=== PATIENT | male | born 1935 | race Caucasian/White ===

== ENCOUNTER 2024-06-11 15:29 | Observation (INO) | payer OTHER ==
[2024-06-11 17:53] LABS: BASO % 0.3 % (0-2.0); EOS % 4.2 % (0-4.5); HEMATOCRIT 36.1 % (35.4-49); HEMOGLOBIN 12.2 GM/dL (11.7-16.9); LYMPH % 36.8 % (8-40); MCH 32.1 pg (25.7-33.7); MCHC 33.7 g/dl (32.0-35.9); MEAN CELL VOLUME 95.4 fl (80-96); MEAN PLT VOLUME 8.8 fl (7.5-11.1); MONO % 16.7 % (3.8-10.2); PLATELET COUNT 147 10^3/uL (134-434); RBC 3.79 M/mm3 (4.00-5.60); RDW 13.8 % (11.9-15.9); WHITE BLOOD COUNT 4.4 K/mm3 (4.0-10.0)
[2024-06-11 18:16] LABS: POTASSIUM 4.3 mmol/L (3.5-5.1)
[2024-06-11 18:19] LABS: ALBUMIN 4.1 g/dl (3.4-5.0); CALCIUM 9.4 mg/dL (8.5-10.1)
[2024-06-11 18:23] LABS: CREATININE 1.7 mg/dL (0.55-1.3)
[2024-06-11 18:24] LABS: BILIRUBIN,TOTAL 0.8 mg/dL (0.2-1); TOT PROT 7.2 g/dl (6.4-8.2)
[2024-06-11 19:08] LABS: EPI CELLS 10 /uL (0-25.1); HYALINE CASTS 4 /uL (0-3.1); PH,URINE 5.5 (5.0-8.0); URINE APPEARANCE CLEAR; URINE BACTERIA 2 /uL (0-1359); URINE BILIRUBIN NEGATIVE (NEGATIVE); URINE COLOR YELLOW; URINE GLUCOSE (UA) NEGATIVE (NEGATIVE); URINE KETONE TRACE (NEGATIVE); URINE LEUK ESTERASE NEGATIVE (NEGATIVE); URINE NITRITE NEGATIVE (NEGATIVE); URINE PROTEIN 1+ (NEGATIVE); URINE RBC 30 /uL (0-23.9); URINE WBC 11 /uL (0-25.8)
[2024-06-11] MEDS: CARVEDILOL 3.125 MG TABLET (FP) PO SCH (23:57)
[2024-06-11] MEDS: DONEPEZIL HCL 10 MG TABLET (FP) PO SCH (23:57)
[2024-06-11] MEDS: ATORVASTATIN CA 40 MG TABLET (FP) PO SCH (23:57)
[2024-06-11] MEDS ORDERED: ATORVASTATIN CA 40 MG TABLET (FP) ONE (23:59)
[2024-06-11] MEDS ORDERED: DONEPEZIL HCL 5 MG TABLET (FP) ONE (23:59)
[2024-06-11] MEDS ORDERED: CARVEDILOL 3.125 MG TABLET (FP) ONE (23:59)
[2024-06-12] MEDS: DEXTROSE 5%-0.45% SALINE 1,000 ML IV SCH (00:25)
[2024-06-12] MEDS: REMDESIVIR 200 MG in SODIUM CHLORIDE 250 ML IVPB ONE (00:25)
[2024-06-12 08:59] LABS: HEMATOCRIT 34.5 % (35.4-49); HEMOGLOBIN 11.6 GM/dL (11.7-16.9); MCH 32.1 pg (25.7-33.7); MCHC 33.7 g/dl (32.0-35.9); MEAN CELL VOLUME 95.1 fl (80-96); MEAN PLT VOLUME 8.7 fl (7.5-11.1); PLATELET COUNT 132 10^3/uL (134-434); RBC 3.62 M/mm3 (4.00-5.60); WHITE BLOOD COUNT 3.9 K/mm3 (4.0-10.0)
[2024-06-12 09:11] LABS: POTASSIUM 3.8 mmol/L (3.5-5.1)
[2024-06-12 09:20] LABS: ALBUMIN 3.6 g/dl (3.4-5.0); BLOOD UREA NITROGEN 23.8 mg/dL (7-18); MAGNESIUM 2.1 mg/dL (1.8-2.4)
[2024-06-12 09:23] LABS: CREATININE 1.2 mg/dL (0.55-1.3); PHOSPHOROUS 2.6 mg/dL (2.5-4.9)
[2024-06-12 09:24] LABS: BILIRUBIN,TOTAL 0.6 mg/dL (0.2-1)
[2024-06-12 09:25] LABS: TOT PROT 6.4 g/dl (6.4-8.2)
[2024-06-12] MEDS ORDERED: ENOXAPARIN NA (PORCINE) 30 MG/0.3 ML DISP.SYRIN SQ ONE (10:53)
[2024-06-12] MEDS: ENOXAPARIN NA (PORCINE) 30 MG/0.3 ML DISP.SYRIN SQ SCH (10:59)
[2024-06-12] MEDS: VITAMIN B COMPLEX W/C COMBO TABLET (FP) PO SCH (10:59)
[2024-06-12] MEDS: ASPIRIN COATED 81 MG TABLET.EC PO SCH (10:59)
[2024-06-12] MEDS: CLOPIDOGREL BISULFATE 75 MG TABLET (FP) PO SCH (10:59)
[2024-06-12] MEDS: SOLIFENACIN SUCCINATE 5 MG TAB PO SCH (10:59)
[2024-06-12] MEDS ORDERED: ATORVASTATIN CA 40 MG TABLET (FP) ONE (20:54)
[2024-06-12] MEDS ORDERED: DONEPEZIL HCL 5 MG TABLET (FP) ONE (20:54)
[2024-06-12] MEDS ORDERED: CARVEDILOL 3.125 MG TABLET (FP) ONE (20:54)
[2024-06-12] MEDS: REMDESIVIR 100 MG in SODIUM CHLORIDE 250 ML IVPB SCH (21:15)
[2024-06-12] MEDS ORDERED: REMDESIVIR 100 MG in SODIUM CHLORIDE 250 ML IVPB SCH (22:00)
[2024-06-13 01:29] VITALS: BMI 22.1
[2024-06-13 07:57] LABS: HEMATOCRIT 37.6 % (35.4-49); HEMOGLOBIN 12.6 GM/dL (11.7-16.9); MCH 32.3 pg (25.7-33.7); MCHC 33.4 g/dl (32.0-35.9); MEAN CELL VOLUME 96.5 fl (80-96); MEAN PLT VOLUME 8.6 fl (7.5-11.1); PLATELET COUNT 146 10^3/uL (134-434); WHITE BLOOD COUNT 5.9 K/mm3 (4.0-10.0)
[2024-06-13 08:56] LABS: POTASSIUM 3.7 mmol/L (3.5-5.1)
[2024-06-13 09:01] LABS: CALCIUM 8.8 mg/dL (8.5-10.1)
[2024-06-13 09:02] LABS: BLOOD UREA NITROGEN 20.4 mg/dL (7-18); MAGNESIUM 2.1 mg/dL (1.8-2.4)
[2024-06-13 09:05] LABS: CREATININE 1.1 mg/dL (0.55-1.3)
[2024-06-14 08:01] LABS: BASO % 0.2 % (0-2.0); EOS % 2.3 % (0-4.5); HEMATOCRIT 34.8 % (35.4-49); HEMOGLOBIN 11.6 GM/dL (11.7-16.9); LYMPH % 38.2 % (8-40); MCH 32.1 pg (25.7-33.7); MCHC 33.4 g/dl (32.0-35.9); MEAN CELL VOLUME 95.9 fl (80-96); MEAN PLT VOLUME 8.9 fl (7.5-11.1); MONO % 11.4 % (3.8-10.2); NEUT % 47.9 % (42.8-82.8); PLATELET COUNT 148 10^3/uL (134-434); RBC 3.63 M/mm3 (4.00-5.60); RDW 13.8 % (11.9-15.9); WHITE BLOOD COUNT 5.2 K/mm3 (4.0-10.0)
[2024-06-14 08:33] LABS: BLOOD UREA NITROGEN 21.5 mg/dL (7-18); CALCIUM 8.4 mg/dL (8.5-10.1)
[2024-06-14 08:36] LABS: CREATININE 1.1 mg/dL (0.55-1.3)
[2024-06-14] MEDS: REMDESIVIR 100 MG in SODIUM CHLORIDE 250 ML IVPB ONE (22:21)
[2024-06-15] MEDS: QUEtiapine FUMARATE 25 MG TABLET PO PRN (08:13)
[2024-06-15] MEDS ORDERED: QUEtiapine FUMARATE 25 MG TABLET PO PRN (09:44)
[2024-06-15] MEDS: QUEtiapine FUMARATE 25 MG TABLET PO SCH (11:14)
[2024-06-15] MEDS ORDERED: QUEtiapine FUMARATE 25 MG TABLET PO SCH (14:00)
[2024-06-19 10:02] LABS: BASO % 0.3 % (0-2.0); EOS % 2.4 % (0-4.5); HEMATOCRIT 42.1 % (35.4-49); HEMOGLOBIN 13.7 GM/dL (11.7-16.9); LYMPH % 28.4 % (8-40); MCH 31.6 pg (25.7-33.7); MCHC 32.6 g/dl (32.0-35.9); MEAN PLT VOLUME 8.4 fl (7.5-11.1); MONO % 10.7 % (3.8-10.2); NEUT % 58.2 % (42.8-82.8); PLATELET COUNT 222 10^3/uL (134-434); RBC 4.34 M/mm3 (4.00-5.60); RDW 13.7 % (11.9-15.9); WHITE BLOOD COUNT 6.2 K/mm3 (4.0-10.0)
[2024-06-19 10:07] LABS: POTASSIUM 4.5 mmol/L (3.5-5.1)
[2024-06-19 10:10] LABS: BLOOD UREA NITROGEN 33.9 mg/dL (7-18)
[2024-06-19 10:13] LABS: CREATININE 1.3 mg/dL (0.55-1.3)
[2024-06-19 19:14] VITALS: RESP 18
[2024-06-19 23:01] VITALS: BP 102/58; PULSE 88; TEMP 98.1
== END 2024-06-20 00:21 ==
LOC: JER 15:29 → UNDOADMIN 20:39 → JERBED 20:39 → INTOOBSV 06-12 10:03 → JERBED 06-12 10:03 → J7W 06-13 00:43
PROVIDERS: ADMIT Internal Medicine; ATTEND Nurse Practitioner
PROC: 3E033GC Introduction of Other Therapeutic Substance into Peripheral Vein, Percutaneous Approach (ICD-10-PCS; principal; 2024-06-12)
PROC: 3E023GC Introduction of Other Therapeutic Substance into Muscle, Percutaneous Approach (ICD-10-PCS; 2024-06-12)
DX: G93.41 Metabolic encephalopathy (principal); U07.1 COVID-19; N17.9 Acute kidney failure, unspecified; R13.10 Dysphagia, unspecified; E86.0 Dehydration; I11.9 Hypertensive heart disease without heart failure; Z95.5 Presence of coronary angioplasty implant and graft; E78.5 Hyperlipidemia, unspecified; F03.90 Unspecified dementia, unspecified severity, without behavioral disturbance, psychotic disturbance, mood disturbance, and anxiety; R41.82 Altered mental status, unspecified; Z29.89 Encounter for other specified prophylactic measures
CPT/HCPCS: 0241U-QW; 36415; 71045-TC-FY; 80048; 80053; 81003; 82962; 83735; 84100; 85025; 85027; 87086; 93005; 93010; 97116-GP; 97161-GP; 99285-25; G0378; J0248